=== PATIENT | male | born 1985 ===

== ENCOUNTER 2019-12-09 12:40 | Emergency (ER) | payer OTHER ==
[2019-12-09] MEDS ORDERED: Sodium Chloride 0.9% 1,000 ML IV ONE (13:08)
[2019-12-09] MEDS ORDERED: Diazepam 5 MG Tab PO ONE (13:08)
[2019-12-09] MEDS ORDERED: Sodium Chloride 0.9% 2.5 ML Syringe FLUSH PRN (13:09)
[2019-12-09] MEDS ORDERED: Sodium Chloride 0.9% 10 ML Syringe FLUSH PRN (13:09)
--- NOTE | 2019-12-09 13:15 | EDM.PDOC ---
ED HPI GENERAL MEDICAL PROBLEM - General Chief Complaint: Lower Extremity Injury/Pain Stated Complaint: PAIN IN RT THIGH AND KNEE Time Seen by Provider: 12/09/19 12:47 - History of Present Illness INITIAL COMMENTS - FREE TEXT/NARRATIVE: History of present illness: Patient presents complaining of calf pain and leg pain and generalized weakness since a walk on Saturday where he walked approximately 6 miles for work and ended up having some hyperglycemia on the walk he had to stop and rest and then he developed a lot of muscle cramps specifically in the right calf and right thigh he continues to have intermittent spasms and is having continuous pain in the left calf. No fever no chills he has had some nausea no vomiting he has intermittent diarrhea but this is chronic from IBS he also states that he had a tick bite on the calf during this walk there is no rash and he denies having any fever chills or headache. Review of systems: As per history of present illness and below otherwise all systems reviewed and negative. Past medical history: As per history of present illness and as reviewed below otherwise noncontributory. Surgical history: As per history of present illness and as reviewed below otherwise nonco ntributory. Social history: No reported history of drug or alcohol abuse. Family history: As per history of present illness and as reviewed below otherwise noncontributory. Physical exam: HEENT: Atraumatic, normocephalic, pupils reactive, negative for conjunctival pallor or scleral icterus, mucous membranes moist, throat clear, neck supple, nontender, trachea midline. Lungs: Clear to auscultation, breath sounds equal bilaterally, chest nontender. Heart: S1S2, regular, negative for clicks, rubs, or JVD. Abdomen: Soft, nondistended, nontender. Negative for masses or hepatosplenomegaly. Negative for costovertebral tenderness. Pelvis: Stable nontender. Genitourinary: Deferred. Rectal: Deferred. Extremities: Atraumatic, negative for cords or calf pain. Neurovascular unremarkable. The right calf is tender there is a palpable muscle spasm in the calf he has a positive Homans sign. Good distal pulse Neuro: Awake, alert, oriented. Cranial nerves II through XII unremarkable. Cerebellum unremarkable. Motor and sensory unremarkable throughout. Exam nonfocal. Skin: There is no rash specifically no erythema migrans Diagnostics: [] Therapeutics: [] Impression: [] Plan: Since the patient is on metformin I will check electrolytes and a CBC get a Doppler of the lower extremity give him a liter of fluids and some Valium for his muscle spasms. [] Definitive disposition and diagnosis as appropriate pending reevaluation and review of above. right leg/hip Pain Score (Numeric/FACES): 8 - Related Data Allergies Allergy/AdvReac Type Severity Reaction Status Date / Time amoxicillin Allergy Other Verified 12/09/19 13:03 Home Meds: Home Meds Cyclobenzaprine [Flexeril] 10 mg PO TID #30 tab 12/09/19 [Rx] metFORMIN [Glucophage XR] 500 mg PO BID 12/09/19 [History] Past Medical History Respiratory History: Reports: Asthma Gastrointestinal History: Reports: Irritable Bowel Syndrome Musculoskeletal History: Reports: Back Pain, Chronic Other Endocrine/Metabolic History: Diabetes - Past Surgical History GI Surgical History: Reports: Other (See Below) Other GI Surgeries/Procedures: Hernia x2 Social & Family History - Tobacco Use Smoking Status *Q: Current Every Day Smoker Years of Tobacco use: 16 Packs/Tins Daily: 0.5 - Recreational Drug Use Recreational Drug Use: No Recreational Drug Type: Reports: Marijuana/Hashish Review of Systems - Review of Systems Review Of Systems: See Below ED EXAM, GENERAL - Physical Exam Exam: See Below Course - Vital Signs Text/Narrative:: Patient received a liter of saline and some Valium in the ED the lab studies are unremarkable and the DVT study of his right lower extremity is unremarkable he will be discharged home on Flexeril increase fluids and follow-up with primary care. Last Recorded V/S: Last Vital Signs Temp 36.2 C 12/09/19 12:59 Pulse 102 H 12/09/19 12:59 Resp 18 12/09/19 12:59 BP 134/90 12/09/19 12:59 Pulse Ox 95 12/09/19 12:59 - Orders/Labs/Meds Orders: Active Orders 24 hr Category Date Time Status Sodium Chloride 0.9% [Saline Flush] Med 12/09/19 13:09 Active 10 ml FLUSH ASDIRECTED PRN Sodium Chloride 0.9% [Saline Flush] Med 12/09/19 13:09 Active 2.5 ml FLUSH ASDIRECTED PRN Saline Lock Insert [OM.PC] Stat Oth 12/09/19 13:10 Ordered Medication Orders Sodium Chloride (Saline Flush) 10 ml FLUSH ASDIRECTED PRN PRN Reason: Keep Vein Open Last Admin: 12/09/19 13:49 Dose: 10 ml Documented by: SHIRA Sodium Chloride (Saline Flush) 2.5 ml FLUSH ASDIRECTED PRN PRN Reason: Keep Vein Open Last Admin: 12/09/19 13:49 Dose: 2.5 ml Documented by: SHIRA Labs: Laboratory Tests 12/09/19 12/09/19 Range/Units 13:57 13:57 WBC 6.98 (4.0-11.0) K/uL RBC 5.13 (4.50-5.90) M/uL Hgb 15.0 (13.0-17.0) g/dL Hct 47.6 (38.0-50.0) % MCV 92.8 (80.0-98.0) fL MCH 29.2 (27.0-32.0) pg MCHC 31.5 (31.0-37.0) g/dL RDW Std Deviation 50.2 (28.0-62.0) fl RDW Coeff of Oriana 15 (11.0-15.0) % Plt Count 299 (150-400) K/uL MPV 9.50 (7.40-12.00) fL Neut % (Auto) 60.6 (48.0-80.0) % Lymph % (Auto) 26.6 (16.0-40.0) % [place] % (Auto) 9.3 (0.0-15.0) % Eos % (Auto) 2.9 (0.0-7.0) % Baso % (Auto) 0.6 (0.0-1.5) % Neut # (Auto) 4.2 (1.4-5.7) K/uL Lymph # (Auto) 1.9 (0.6-2.4) K/uL [place] # (Auto) 0.7 (0.0-0.8) K/uL Eos # (Auto) 0.2 (0.0-0.7) K/uL Baso # (Auto) 0.0 (0.0-0.1) K/uL Nucleated RBC % 0.0 /100WBC Nucleated RBCs # 0 K/uL Sodium 139 (136-148) mmol/L Potassium 3.9 (3.5-5.1) mmol/L Chloride 102 (98-107) mmol/L Carbon Dioxide 27.4 (21.0-32.0) mmol/L BUN 10 (7.0-18.0) mg/dL Creatinine 0.9 (0.8-1.3) mg/dL Est Cr Clr Drug Dosing 140.65 mL/min Estimated GFR (MDRD) > 60.0 ml/min Glucose 120 H (74-106) mg/dL Calcium 8.7 (8.5-10.1) mg/dL Total Bilirubin 0.2 (0.2-1.0) mg/dL AST 82 H (15-37) IU/L ALT 41 (14-63) IU/L Alkaline Phosphatase 82 (46-116) U/L Total Protein 6.9 (6.4-8.2) g/dL Albumin 3.6 (3.4-5.0) g/dL Globulin 3.3 (2.6-4.0) g/dL Albumin/Globulin Ratio 1.1 (0.9-1.6) Meds: Medications Generic Name Dose Route Start Last Admin Trade Name Freq PRN Reason Stop Dose Admin Sodium Chloride 10 ml 12/09/19 13:12/09/19 13:49 Saline Flush FLUSH 10 ml ASDIRECTED PRN Administration Keep Vein Open Sodium Chloride 2.5 ml 12/09/19 13:09 12/09/19 13:49 Saline Flush FLUSH 2.5 ml ASDIRECTED PRN Administration Keep Vein Open Discontinued Medications Generic Name Dose Route Start Last Admin Trade Name Freq PRN Reason Stop Dose Admin Diazepam 5 mg 12/09/19 13:08 12/09/19 13:49 Valium. PO 12/09/19 13:09 5 mg ONETIME ONE Administration Sodium Chloride 1,000 mls @ 999 mls/hr 12/09/19 13:08 12/09/19 13:49 Normal Saline IV 12/09/19 14:08 999 mls/hr .Bolus ONE Administration Departure - Departure Time of Disposition: 14:57 Disposition: Home, Self-Care 01 Condition: Good Clinical Impression: Muscle spasm - Discharge Information *PRESCRIPTION DRUG MONITORING PROGRAM REVIEWED*: Not Applicable *COPY OF PRESCRIPTION DRUG MONITORING REPORT IN PATIENT KANE: Not Applicable Prescriptions: Cyclobenzaprine [Flexeril] 10 mg PO TID #30 tab Instructions: Muscle Cramps and Spasms, Thid-lr-Femb Referrals: PCP,None [Primary Care Provider] - Forms: ED Department Discharge Sepsis Event Note (ED) - Evaluation Sepsis Screening Result: No Definite Risk - Focused Exam Vital Signs: Vital Signs Temp Pulse Resp BP Pulse Ox 12/09/19 12:59 36.2 C 102 H 18 134/90 95 - My Orders Last 24 Hours: My Active Orders 12/09/19 13:09 Sodium Chloride 0.9% [Saline Flush] 10 ml FLUSH ASDIRECTED PRN Sodium Chloride 0.9% [Saline Flush] 2.5 ml FLUSH ASDIRECTED PRN 12/09/19 13:10 Saline Lock Insert [OM.PC] Stat - Assessment/Plan Last 24 Hours: My Active Orders 12/09/19 13:09 Sodium Chloride 0.9% [Saline Flush] 10 ml FLUSH ASDIRECTED PRN Sodium Chloride 0.9% [Saline Flush] 2.5 ml FLUSH ASDIRECTED PRN 12/09/19 13:10 Saline Lock Insert [OM.PC] Stat
--- NOTE | 2019-12-09 14:01 | US ---
Right lower extremity deep venous ultrasound: Duplex and color Doppler evaluation was obtained of the right common femoral, superficial femoral, popliteal, posterior tibial and peroneal veins. Findings: Normal compression and Doppler blood flow is seen. Impression: 1. No evidence of deep venous thrombosis within the right lower extremity. Diagnostic code #1 This report was dictated in MDT
[2019-12-09 14:35] LABS: CARBON DIOXIDE,CO2 27.4 mmol/L (21.0-32.0); CHLORIDE,CL 102 mmol/L (98-107); GLUCOSE RANDOM 120 mg/dL (74-106); POTASSIUM,K 3.9 mmol/L (3.5-5.1); SODIUM,NA 139 mmol/L (136-148)
[2019-12-09 14:44] LABS: BLOOD UREA NITROGEN,BUN 10 mg/dL (7.0-18.0)
== END 2019-12-09 15:19 | disposition home or self-care (01) ==
LOC: MW.ED 12:40
DX: M62.838 Other muscle spasm (principal); F17.210 Nicotine dependence, cigarettes, uncomplicated; J45.909 Unspecified asthma, uncomplicated; E11.9 Type 2 diabetes mellitus without complications; Z88.1 Allergy status to other antibiotic agents; Z79.84 Long term (current) use of oral hypoglycemic drugs
CPT/HCPCS: 36415; 80053; 85025; 93971; 96360; 99284; A9270; J7030; 99283